=== PATIENT | female | born 1970 | race African-American/Black ===

== ENCOUNTER → 2023-07-29 | Emergency (ER) | payer SELFPAY ==
[~2023-07-29] VITALS: Ht 170.2 cm; Wt 91.0 kg
[2023-07-29 10:21] VITALS: O2SAT 0
[2023-07-29 11:50] VITALS: BP 0/0; PULSE 0; RESP 0
== END ==
LOC: ER 10:31
DX: I46.9 Cardiac arrest, cause unspecified (principal); B02.9 Zoster without complications
CPT/HCPCS: 82962; 31500; 36680; 92950; 99285; Z7610